=== PATIENT | male | born 1955 | race Caucasian/White ===

== ENCOUNTER 2017-04-02 09:00 | Emergency (ER) | payer OTHER ==
[2017-04-02] MEDS ORDERED: cefTRIAXone(*) 1 GM in NS 0.9% 50 ML* 50 ML IVPB ONE (09:27)
[2017-04-02] MEDS ORDERED: Lidocaine 1%* 5 ML VIAL ONE (10:27)
[2017-04-02] MEDS ORDERED: cefTRIAXone VIAL(*) 1,000 MG VIAL ONE (10:27)
[2017-04-02] MEDS ORDERED: cefTRIAXone VIAL(*) 1,000 MG in NS 0.9% 50 ML* 50 ML IVPB ONE (10:30)
[2017-04-02] MEDS ORDERED: cefTRIAXone VIAL(*) 1,000 MG VIAL IM ONE (10:32)
[2017-04-02 11:10] VITALS: BP 136/79
--- NOTE | 2017-04-02 17:41 | ED ---
Su Hooper Thomas, scribed for Zac Wong MD on 04/02/17 at 0933 . Skin Complaint - HPI Summary HPI Summary: Pt is a 61 y/o male presenting to the ED with an abscess and rash on the R lateral site of the thigh that was first observed two weeks ago. Since onset, the rash has become progressively larger and it began to drain this morning. The pt reports mild soreness in the area, ranked 2/10. Sx aggravated and alleviated by nothing. The pt notes that for five years there had been a spot in the location of the abscess. Denies fevers, chills. No recent abx use. Denies Hx of MRSA. NKDA - History of Current Complaint Chief Complaint: EDRashSkinAbscess Stated Complaint: INFECTION ON RT LEG Hx Obtained From: Patient Onset/Duration: Started Days Ago - two weeks, Still Present Timing: Constant Onset Severity: Mild Current Severity: Mild Pain Intensity: 2 Pain Scale Used: 0-10 Numeric Skin Location: Other: - R lateral site of the thigh Character: Raised - Abscess, Painful Aggravating Symptom(s): Nothing Alleviating Symptom(s): Nothing Associated Signs & Symptoms: Negative - Allergy/Home Medications Allergies/Adverse Reactions: Allergies Allergy/AdvReac Type Severity Reaction Status Date / Time No Known Allergies Allergy Verified 01/03/15 12:13 PMH/Surg Hx/FS Hx/Imm Hx Respiratory History: Reports: Hx Chronic Obstructive Pulmonary Disease (COPD) - duoneb, advair, singulair, prednisone Denies: Other Respiratory Problems/Disorders Musculoskeletal History: Denies: Hx Rheumatoid Arthritis, Hx Osteoporosis Sensory History: Reports: Hx Contacts or Glasses Opthamlomology History: Reports: Hx Contacts or Glasses - Surgical History Surgery Procedure, Year, and Place: hip surgery 1966 - Immunization History Date of Tetanus Vaccine: Unknown Infectious Disease History: No Infectious Disease History: Denies: Traveled Outside the [place] in Last 30 Days - Family History Known Family History: Positive: Other - COPD (brother as a result) - Social History Alcohol Use: Weekly Substance Use Type: Reports: None Smoking Status (MU): Former Smoker Type: Cigarettes Review of Systems Negative: Fever, Chills Positive: Other - Abscess on the R lateral site of the thigh All Other Systems Reviewed And Are Negative: Yes Physical Exam - Summary Physical Exam Summary: GENERAL: Patient is a well-developed, obese, and nourished male is lying comfortable in the stretcher. Patient is not in any acute respiratory distress. HEAD AND FACE: No signs of trauma. No ecchymosis, hematomas or skull depressions. No sinus tenderness. EYES: PERRLA, EOMI x 2, No injected conjunctiva, no nystagmus. EARS: Hearing grossly intact. Ear canals and tympanic membranes are within normal limits. MOUTH: Oropharynx within normal limits. NECK: Supple, trachea is midline, no adenopathy, no JVD, no carotid bruit, no c- spine tenderness, neck with full ROM. CHEST: Symmetric, no tenderness at palpation LUNGS: Clear to auscultation bilaterally. No wheezing or crackles. CVS: Regular rate and rhythm, S1 and S2 present, no murmurs or gallops appreciated. ABDOMEN: Soft, non-tender. No signs of distention. No rebound no guarding, and no masses palpated. Bowel sounds are normal. EXTREMITIES: FROM in all major joints, no edema, no cyanosis or clubbing. NEURO: Alert and oriented x 3. No acute neurological deficits. Speech is normal and follows commands. SKIN: Abscess of cellulitis in the R lateral site of the thigh. Triage Information Reviewed: Yes Vital Signs On Initial Exam: Initial Vitals Temp Pulse Resp BP Pulse Ox 97.7 F 88 16 138/65 95 04/02/17 09:02 04/02/17 09:02 04/02/17 09:02 04/02/17 09:02 04/02/17 09:02 Vital Signs Reviewed: Yes Procedures - Procedure Summary Procedure Summary: I&D: Prepped with sterile techniques. Placed lidocaine without epi. Used an 11 blade and opened. Exposed copious cell sanguineous discharge. Put in packing of gauze. No complications. - Incision and Drainage Site: R lateral site of thigh Anesthesia: Lidocaine - without epi Instrument(s): Scalpel - 11 blade Packing: Gauze Diagnostics - Vital Signs Vital Signs Temp Pulse Resp BP Pulse Ox 04/02/17 09:05 98.1 F 86 16 138/65 95 04/02/17 09:02 97.7 F 88 16 138/65 95 - Laboratory Lab Statement: Any lab studies that have been ordered have been reviewed, and results considered in the medical decision making process. Course/Dx - Course Course Of Treatment: Pt is a 61 y/o male presenting to the ED with an abscess and rash on the R lateral site of the thigh that was first observed two weeks ago. Since onset, the rash has become progressively larger and it began to drain this morning. The pt reports mild soreness in the area, ranked 2/10. Sx aggravated and alleviated by nothing. The pt notes that for five years there had been a spot in the location of the abscess. Denies fevers, chills. No recent abx use. Denies Hx of MRSA. NKDA. Patient has an abscess of cellulitis which was I&D'ed. Patient was given 1 dose of Rocephin. Cultures were sent to the lab and the patient was discharged with Bactrim. He was instructed to follow up with his PCP for culture results and a check in two days. If he does not have an appointment with PCP, then he can return to the ED for further assessment. Patient is AxOx3 and hemodynamically stable. I discussed all the findings and test results with the patient. Patient was instructed to return to the emergency room immediately if any of the symptoms return or worsens. Plan of care was discussed with the patient and understands and agrees. All questions were answered at patient satisfaction. There were no further complaints or concerns. Lung exam before discharge: CTA B/L. Good air exchange. No wheezing or crackles heard. CVS: S1 and S2 present. No murmurs appreciated. Patient is alert and oriented x 3. Patient is hemodynamically stable. Patient will be discharged home with follow up PCP in the next 2-3 days - Differential Diagnoses - Skin Complaint Differential Diagnoses: Abscess, Cellulitis - Diagnoses Provider Diagnoses: Abscess or cellulitis of thigh Discharge - Discharge Plan Condition: Stable Disposition: HOME Prescriptions: Sulfamethox/Trimethoprim DS* [Bactrim DS 800/160 TAB*] 1 tab PO BID #20 tab Patient Education Materials: Abscess (ED) Referrals: [facility] [Outside] - 2 Days (Follow up in two days with your primary care provider. If you do not have an appointment, you can return to the ED for further assessment. ) The documentation as recorded by the Su beasley Thomas accurately reflects the service I personally performed and the decisions made by me, Zac Wong MD.
== END 2017-04-02 11:10 | disposition home or self-care (01) ==
LOC: ED 09:00
DX: L02.415 Cutaneous abscess of right lower limb (principal); J44.9 Chronic obstructive pulmonary disease, unspecified; Z87.891 Personal history of nicotine dependence
CPT/HCPCS: 10060; 87070; 87077; 87205; 87640; 87641; 96372; 99284; J0696

== ENCOUNTER 2017-10-10 01:53 | Emergency (ER) | payer OTHER ==
[2017-10-10] MEDS ORDERED: oxyCODONE/Acetamin 5/325 MG* TAB PO ONE (04:04)
[2017-10-10 04:45] VITALS: BP 154/76
--- NOTE | 2017-10-10 05:01 | ED ---
Claudia Hooper Emily, scribed for Ag Hauel on 10/10/17 at 0210 . Lower Extremity - HPI Summary HPI Summary: This patient is a 62 year old M presenting to [facility] with a chief complaint of left-sided hip pain that began earlier today. Pt reports he fell on his hip at 1999 last night. The patient rates the pain 8/10 in severity. Symptoms aggravated by nothing. Symptoms alleviated by nothing. Patient reports difficulty walking. Pt has pins in his L hip. - History of Current Complaint Chief Complaint: EDHipPelvisInjury Stated Complaint: LT HIP INJURY Time Seen by Provider: 10/10/17 02:01 Hx Obtained From: Patient Mechanism Of Injury: Fall From A Standing Position Onset of Pain: Immediate Onset/Duration: Hours Severity Initially: Severe Severity Currently: Severe Pain Intensity: 8 Pain Scale Used: 0-10 Numeric Timing: Constant, Lasting Hours Location: Is Discrete @ - Left hip Associated Signs And Symptoms: Positive: Other - Positive difficulty walking Aggravating Factor(s): Nothing Alleviating Factor(s): Nothing - Allergies/Home Medications Allergies/Adverse Reactions: Allergies Allergy/AdvReac Type Severity Reaction Status Date / Time No Known Allergies Allergy Verified 01/03/15 12:13 PMH/Surg Hx/FS Hx/Imm Hx Previously Healthy: No Respiratory History: Reports: Hx Chronic Obstructive Pulmonary Disease (COPD) - duoneb, advair, singulair, prednisone Denies: Other Respiratory Problems/Disorders Musculoskeletal History: Denies: Hx Rheumatoid Arthritis, Hx Osteoporosis Sensory History: Reports: Hx Contacts or Glasses Opthamlomology History: Reports: Hx Contacts or Glasses - Surgical History Surgery Procedure, Year, and Place: hip surgery 1966 - Immunization History Date of Tetanus Vaccine: Unknown Infectious Disease History: No Infectious Disease History: Denies: Traveled Outside the [place] in Last 30 Days - Family History Known Family History: Positive: Other - COPD (brother as a result) - Social History Occupation: Retired Lives: With Family Alcohol Use: Weekly Substance Use Type: Reports: None Smoking Status (MU): Former Smoker Type: Cigarettes Review of Systems Negative: Fever Positive: Other - Positive L hip pain and difficulty walking All Other Systems Reviewed And Are Negative: Yes Physical Exam Triage Information Reviewed: Yes Vital Signs On Initial Exam: Initial Vitals Temp Pulse Resp BP Pulse Ox 97.9 F 79 16 162/73 96 10/10/17 01:55 10/10/17 01:55 10/10/17 01:55 10/10/17 01:55 10/10/17 01:55 Vital Signs Reviewed: Yes Appearance: Positive: Well-Appearing, No Pain Distress Skin: Positive: Warm, Skin Color Reflects Adequate Perfusion, Dry Head/Face: Positive: Normal Head/Face Inspection Eyes: Positive: EOMI, CHRISTIAN Neck: Positive: Supple, Nontender Respiratory/Lung Sounds: Positive: Clear to Auscultation, Breath Sounds Present Cardiovascular: Positive: RRR, Pulses are Symmetrical in both Upper and Lower Extremities Abdomen Description: Positive: Nontender, Soft Bowel Sounds: Positive: Present Musculoskeletal: Positive: Other - Tenderness over the L hip. Restricted ROM of the hip. No neurovascular deficits. Neurological: Positive: Normal, Sensory/Motor Intact, Alert, Oriented to Person Place, Time Psychiatric: Positive: Affect/Mood Appropriate Diagnostics - Vital Signs Vital Signs Temp Pulse Resp BP Pulse Ox 10/10/17 01:55 97.9 F 79 16 162/73 96 - Laboratory Lab Statement: Any lab studies that have been ordered have been reviewed, and results considered in the medical decision making process. - Radiology Hip/Pelvis Radiology Interpretation Completed By: ED Physician - Hip/pelvis XR reveals questionable L hip fracture. - CT Pelvis CT Interpretation Completed By: Radiologist - Pelvis CT reveals, per radiologist , no acute fracture. Fixation left femoral neck. Osteoarthritis left greater than right hips. Diverticulosis colon. Small periumbilical hernia containing fat. ED physician has reviewed this radiology report. Re-Evaluation - Re-Evaluation First Eval Re-Evaluation Time: 04:05 Change: Improved Comment: Pt is able to ambulate Lower Extremity Course/Dx - Course Assessment/Plan: This patient is a 62 year old M presenting to [facility] with a chief complaint of left-sided hip pain that began earlier today. Pt reports he fell on his hip at 1999 last night. Pt has pins in his L hip. Physical Exam Findings. Tenderness over the L hip. Restricted ROM of the hip. No neurovascular deficits. Hip/pelvis XR reveals questionable L hip fracture. Pelvis CT reveals, per radiologist, no acute fracture. Fixation left femoral neck. Osteoarthritis left greater than right hips. Diverticulosis colon. Small periumbilical hernia containing fat. In the ED course the patient was given Percocet. Pt is able ambulate. He wants to follow up with Dr. Madrigal in the morning for follow up as an outpatient. Patient will be discharged with follow up from Dr. Madrigal. The patient is agreeable with this plan. - Diagnoses Differential Diagnosis/HQI/PQRI: Positive: Arthritis, Bursitis, Fracture (Closed ), Sprain, Strain Provider Diagnoses: Left hip pain Discharge - Discharge Plan Condition: Stable Disposition: HOME Prescriptions: oxyCODONE/Acetamin 5/325 MG* [Percocet 5/325 TAB*] 1 tab PO Q8H PRN #15 tab MDD 3 PRN Reason: Pain Patient Education Materials: Oxycodone/Acetaminophen (By mouth), Hip Pain (ED) Referrals: Zina Sharma MD [Primary Care Provider] - Abigail Madrigal MD [Medical Doctor] - 1 Day Additional Instructions: RETURN TO THE EMERGENCY DEPARTMENT FOR NEW OR WORSENING SYMPTOMS The documentation as recorded by the Claudia beasley Emily accurately reflects the service I personally performed and the decisions made by , Uri Ha.
--- NOTE | 2017-10-10 08:07 | RAD ---
HISTORY: Fall, tenderness left hip COMPARISONS: February 07, 2015 VIEWS: 4, Frontal view of the pelvis with frontal and frog-leg views of the left hip FINDINGS: BONE DENSITY: Normal. BONES: The patient is status post internal fixation of the left femur. There is no hardware failure or osteolysis. The appearance is similar to February 07, 2015. JOINTS: There is advanced osteoarthritis of the left hip with moderate osteoarthritis of the right hip ALIGNMENT: There is no dislocation. SOFT TISSUES: Unremarkable. OTHER FINDINGS: None. IMPRESSION: 1. STATUS POST INTERNAL FIXATION OF THE LEFT FEMUR. 2. OSTEOARTHRITIS. 3. NO ACUTE OSSEOUS INJURY. IF SYMPTOMS PERSIST, RECOMMEND REPEAT IMAGING
--- NOTE | 2017-10-10 08:15 | RAD ---
CLINICAL HISTORY: Left hip pain after a slip and fall injury. Relevant surgical history includes left hip "pinned" at the age of 12 COMPARISON: Left hip radiograph dated October 10, [address] abdomen pelvis May 15, 2016 TECHNIQUE: Axial CT images of the pelvis were obtained without intravenous contrast. Reformats in the sagittal and coronal planes were created and reviewed. FINDINGS: The visualized segments of small and large bowel are not distended. The gas-filled appendix Is grossly normal appearance without pathologic dilatation. There is no gross retroperitoneal or mesenteric lymphadenopathy in the visualized portions of the lower abdomen and pelvis. The mildly calcified lower abdominal aorta is normal in course and diameter. The arterial and venous structures of the pelvis and upper thighs are normal in size and morphology. Similar the prior CT examination, there are 3 medullary pin spanning the left femoral neck and head. Degenerative changes include marginal osteophyte formation and service irregularity of the articulating services of the left hip. There is no acute fracture visualized. The visualized musculature of the pelvis and upper thighs is normal in appearance. No large hematomas identified. IMPRESSION: Degenerative and postoperative findings of the left hip as described above without acute fracture or dislocation.
== END 2017-10-10 04:43 | disposition home or self-care (01) ==
LOC: ED 01:53
DX: M25.552 Pain in left hip (principal); W19.XXXA Unspecified fall, initial encounter; Y92.9 Unspecified place or not applicable; J44.9 Chronic obstructive pulmonary disease, unspecified
CPT/HCPCS: 72192; 99283; A9270-GY

== ENCOUNTER 2018-02-15 12:37 | Emergency (ER) | payer OTHER ==
[2018-02-15 12:47] VITALS: BP 164/72
== END 2018-02-15 15:37 | disposition left against medical advice (07) ==
LOC: ED 12:37
DX: R09.89 Other specified symptoms and signs involving the circulatory and respiratory systems (principal); Z53.21 Procedure and treatment not carried out due to patient leaving prior to being seen by health care provider

== ENCOUNTER 2018-02-18 08:18 | Emergency (ER) | payer OTHER ==
[2018-02-18 08:30] VITALS: BP 144/81
[2018-02-18] MEDS ORDERED: Ipratropium 0.5MG/2.5ML NEB* 0.5 MG/2.5 ML NEB.SOLN INH ONE (08:42)
[2018-02-18] MEDS ORDERED: Albuterol 2.5 MG/3 ML NEB.SOL* (0.083%) INH ONE (08:42)
--- NOTE | 2018-02-18 10:07 | UC ---
Respiratory Complaint HPI - HPI Summary HPI Summary: 1 WEEK OF CHEST CONGESTION, COUGH AND WHEEZE. HAS SHORTNESS OF BREATH AT BASELINE DUE TO COPD BUT IT HAS GOTTEN WORSE. NO FEVER, ST N/V. FOLLOWS WITH DR. DE LOS SANTOS - PULMONOLOGY. - History of Current Complaint Chief Complaint: UCRespiratory Stated Complaint: CONGESTED Time Seen by Provider: 02/18/18 08:36 Hx Obtained From: Patient Onset/Duration: Gradual Onset, Lasting Days, Still Present Timing: Constant Severity Initially: Moderate Severity Currently: Moderate Pain Intensity: 0 Pain Scale Used: 0-10 Numeric Character: Cough: Productive Aggravating Factors: Exertion, Deep Breaths, Recumbent Position Alleviating Factors: Bronchodilator Associated Signs And Symptoms: Positive: Dyspnea, Wheezing. Negative: Fever, Pleuritic Chest Pain - Allergies/Home Medications Allergies/Adverse Reactions: Allergies Allergy/AdvReac Type Severity Reaction Status Date / Time No Known Allergies Allergy Verified 02/18/18 08:30 Home Medications: Home Medications Aclidinium Seymour [Tudorza Pressair] 400 mcg IN 02/18/18 [History] Montelukast Sodium TAB* [Singulair 10 MG TAB*] 10 mg PO DAILY 02/18/18 [History Confirmed 02/18/18] Roflumilast [Daliresp] 250 mcg PO 02/18/18 [History] predniSONE TAB* [Deltasone TAB*] 10 mg PO DAILY 02/18/18 [History Confirmed 11/07] PMH/Surg Hx/FS Hx/Imm Hx Respiratory History: COPD - Surgical History Surgical History: Yes Surgery Procedure, Year, and Place: hip surgery 1966 - Family History Known Family History: Positive: Other - COPD (brother as a result) - Social History Alcohol Use: Rare Substance Use Type: None Smoking Status (MU): Former Smoker Type: Cigarettes When Did the Patient Quit Smoking/Using Tobacco: 2010 Household Exposure Type: Cigarettes - Immunization History Most Recent Influenza Vaccination: none Most Recent Tetanus Shot: unsure Most Recent Pneumonia Vaccination: none Review of Systems Constitutional: Fatigue ENT: Negative Respiratory: Shortness Of Breath, Cough, Other - WHEEZE Cardiovascular: Negative Gastrointestinal: Negative All Other Systems Reviewed And Are Negative: Yes Physical Exam Triage Information Reviewed: Yes Appearance: Well-Appearing, No Pain Distress, Well-Nourished Vital Signs: Initial Vital Signs Temp 97.5 F 02/18/18 08:27 Pulse 79 02/18/18 08:27 Resp 18 02/18/18 08:27 BP 144/81 02/18/18 08:27 Pulse Ox 95 02/18/18 08:27 Vital Signs Reviewed: Yes Eyes: Positive: Conjunctiva Clear ENT: Positive: Hearing grossly normal, Pharynx normal, TMs normal Neck: Positive: Supple, Nontender, No Lymphadenopathy Respiratory: Positive: No respiratory distress, No accessory muscle use, Decreased breath sounds, Crackles - BASES, Wheezing - DIFFUSELY. Negative: Stridor Abdominal Exam: Normal Abdomen Description: Positive: Soft Musculoskeletal: Positive: No Edema Neurological: Positive: Alert Psychological: Positive: Age Appropriate Behavior Skin: Negative: rashes UC Diagnostic Evaluation - Laboratory O2 Sat by Pulse Oximetry: 95 Re-Evaluation - Re-Evaluation First Eval Re-Evaluation Time: 09:45 - WHEEZE STILL PRESENT BUT IMPROVED AFTER DUONEB. PT FEELS A BIT BETTER Change: Improved Respiratory Course/Dx - Differential Dx/Diagnosis Provider Diagnoses: COPD EXACERBATION Discharge - Sign-Out/Discharge Documenting (check all that apply): Discharge/Admit/Transfer - Discharge Plan Condition: Stable Disposition: HOME Prescriptions: Doxycycline Monohydrate [Doxycycline Monohydrate] 1 cap PO BID #20 cap predniSONE TAB* [Deltasone TAB*] 60 mg PO DAILY #15 tab Patient Education Materials: COPD (Chronic Obstructive Pulmonary Disease) (ED) Referrals: Zina De Los Santos MD [Primary Care Provider] - 2 Weeks Additional Instructions: GIVEN YOUR CHRONIC LUNG CONDITION WILL COVER FOR INFECTION WITH DOXY TWICE DAILY X 10 DAYS. WILL ALSO TREAT WITH A BURST OF PREDNISONE. 60MG DAILY X 3 DAYS THEN 40MG DAILY X 2 DAYS THEN 20MG DAILY X 2 DAYS. THEN RESUME YOUR NORMAL 10MG DAILY. CONTINUE YOUR INHALERS PRESCRIBED. FOLLOW-UP WITH DR. DE LOS SANTOS. GO TO THE ER WITHOUT FAIL IF YOU ARE NOT IMPROVING WITH THE ABOVE TREATMENT. - Billing Disposition and Condition Condition: STABLE Disposition: HOME
== END 2018-02-18 10:07 | disposition home or self-care (01) ==
LOC: UCEAST 08:18
DX: J44.1 Chronic obstructive pulmonary disease with (acute) exacerbation (principal); Z87.891 Personal history of nicotine dependence
CPT/HCPCS: 99212; G0463

== ENCOUNTER 2020-02-07 12:07 | Emergency (ER) | payer MEDICARE, MEDICAID, OTHER ==
[2020-02-07] MEDS ORDERED: Albuterol/Ipratropium NEB.SOL* (2.5/0.5 MG) 3 ML NEB.SOLN ONE (12:15)
[2020-02-07] MEDS ORDERED: Albuterol HFA INHALER* 8 gm MDI INH ONE (12:16)
--- NOTE | 2020-02-07 12:26 | ED ---
Shortness of Breath - HPI Summary HPI Summary: The patient is a 64-year-old male presenting to [facility] from [facility] with a chief complaint of shortness of breath this morning. He reports a history of COPD with chronic shortness of breath, but he felt more short of breath today than usual. He has O2 at home as needed. He endorses a productive cough. He denies any chest pain, nausea, vomiting, diarrhea, loss of taste or smell. He is unsure if he has had any fevers. He is not in any pain now. He was in contact with a positive COVID19 individual last week without the proper PPE. No other past medical history. Former smoker. Admits to rare alcohol use. No substance use. Medications reviewed. Allergies noted. - History of Current Complaint Time Seen by Provider: 02/07/20 12:11 Hx Obtained From: Patient Onset/Duration: Sudden Onset, Lasting Hours, Still Present Current Severity: Mild Dyspnea At: Rest Aggravating Factors: Nothing Alleviating Factors: Nothing Associated Signs & Symptoms: Cough (Productive) - Allergy/Home Medications Allergies/Adverse Reactions: Allergies Allergy/AdvReac Type Severity Reaction Status Date / Time No Known Allergies Allergy Verified 02/07/20 12:45 Home Medications: Home Medications Albuterol 2.5MG/3ML (0.083%)* [Ventolin 2.5 MG/3 ML NEB.SUNITA*] 2.5 mg INH TID PRN 01/03/15 [History Confirmed 02/07/20] Albuterol Sulfate [Proair Hfa] 2 puff INH Q6HR PRN 01/03/15 [History Confirmed 02/07/20] Fluticasone-Salmeterol 500-50* [Advair Diskus 500-50*] 1 puff INH BID 01/03/15 [ History Confirmed 02/07/20] Omeprazole CAP (NF) [Prilosec CAP* 20 MG] 20 mg PO DAILY 01/03/15 [History Confirmed 02/07/20] Aclidinium [place] [Tudorza Pressair] 400 mcg IN DAILY 02/18/18 [History Confirmed 02/07/20] Roflumilast [Daliresp] 500 mcg PO DAILY 02/18/18 [History Confirmed 02/07/20] predniSONE 20 mg TAB [Deltasone 20 MG TAB*] 10 mg PO DAILY 02/18/18 [History Confirmed 02/07/20] Azithromycin TAB* [Zithromax TAB (Z-HO) 250 mg #6 tabs] 250 mg PO DAILY #4 tab 02/07/20 [Rx] PMH/Surg Hx/FS Hx/Imm Hx Endocrine/Hematology History: Denies: Hx Diabetes Cardiovascular History: Denies: Hx Hypercholesterolemia, Hx Hypertension Respiratory History: Reports: Hx Chronic Obstructive Pulmonary Disease (COPD) - duoneb, advair, singulair, prednisone Denies: Other Respiratory Problems/Disorders Musculoskeletal History: Denies: Hx Rheumatoid Arthritis, Hx Osteoporosis Sensory History: Reports: Hx Contacts or Glasses Opthamlomology History: Reports: Hx Contacts or Glasses - Surgical History Surgical History: Yes Surgery Procedure, Year, and Place: hip surgery 1966 - Immunization History Date of Tetanus Vaccine: Unknown - Family History Known Family History: Positive: Other - COPD (brother as a result) - Social History Alcohol Use: Rare Hx Substance Use: No Substance Use Type: Reports: None Hx Tobacco Use: Yes Smoking Status (MU): Former Smoker Type: Cigarettes Review of Systems Negative: Fever - unsure Negative: Other - loss of taste or smell Negative: Chest Pain Positive: Shortness Of Breath, Cough - productive Negative: Vomiting, Diarrhea, Nausea All Other Systems Reviewed And Are Negative: Yes Physical Exam - Summary Physical Exam Summary: VITAL SIGNS: Reviewed. GENERAL: Patient is a well-developed and nourished male who is lying comfortable in the stretcher. Patient is not in any acute respiratory distress. HEAD AND FACE: No signs of trauma. No ecchymosis, hematomas or skull depressions. No sinus tenderness. EYES: PERRL, EOMI x 2, No injected conjunctiva, no nystagmus. EARS: Hearing grossly intact. Ear canals and tympanic membranes are within normal limits. MOUTH: Oropharynx within normal limits. NECK: Supple, trachea is midline, no adenopathy, no JVD, no carotid bruit, no c- spine tenderness, neck with full ROM. CHEST: Symmetric, no tenderness at palpation. LUNGS: Coarse breath sounds. Wheezing. No crackles. CVS: Regular rate and rhythm, S1 and S2 present, no murmurs or gallops appreciated. ABDOMEN: Soft, non-tender. No signs of distention. No rebound, no guarding, and no masses palpated. Bowel sounds are normal. EXTREMITIES: FROM in all major joints, no edema, no cyanosis or clubbing. NEURO: Alert and oriented x 3. No acute neurological deficits. Speech is normal and follows commands. SKIN: Dry and warm. Triage Information Reviewed: Yes Vital Signs Reviewed: Yes Procedures - Sedation Patient Received Moderate/Deep Sedation with Procedure: No Diagnostics - Laboratory Result Diagrams: 02/07/20 12:15 02/07/20 12:15 Lab Statement: Any lab studies that have been ordered have been reviewed, and results considered in the medical decision making process. - Radiology Chest X-Ray Radiology Interpretation Completed By: Radiologist Summary of Radiographic Findings: Impression: Hypoinflated lungs with bibasilar airspace opacification (atelectasis versus infiltrate). Dr. Wong has reviewed this report. - EKG 1222 Cardiac Rate: NL - 73 BPM EKG Rhythm: Sinus Rhythm Summary of EKG Findings: EKG at 1222 reveals sinus rhythm at 73 BPM. Incomplete RBBB. No ST elevations. Similar to previous. Dr. Wong has reviewed and interpreted this EKG. 1252 Cardiac Rate: NL - 80 BPM EKG Rhythm: Sinus Rhythm EKG Comparison: No Significant Change - Unchanged from 01/04/15 Summary of EKG Findings: EKG at 1252 reveals sinus rhythm at [address] elevations. Similar to previous on 01/04/15. Dr. Wong has reviewed and interpreted this EKG. Re-Evaluation - Re-Evaluation First Eval Re-Evaluation Time: 15:15 Comment: Patient would like to leave A. He was advised to stay in the hospital both by myself and the hospitalist, but he understands and would still like to leave. Course/Dx - Course Assessment/Plan: The patient is a 64-year-old male presenting to [facility] from [facility] with a chief complaint of shortness of breath this morning. He reports a history of COPD with chronic shortness of breath, but he felt more short of breath today than usual. He is not on O2 at home. He endorses a productive cough. He denies any chest pain, nausea, vomiting, diarrhea, loss of taste or smell. He is unsure if he has had any fevers. He is not in any pain now. He was in contact with a positive COVID19 individual last week without the proper PPE. No other past medical history. Former smoker. Admits to rare alcohol use. No substance use. Medications reviewed. Allergies noted. PMH: COPD not in oxygen and still smoking, Alcohol use, GERD. In the ED course the patient was placed in a monitoring tech, IV access was obtained. Patient was given Albuterol MDI. Past medical records reviewed. Blood test w/o a significant abnormality except for WBCs 18.1, glucose 112, troponin 0.03, CRP 105, BNP 206, lymphocytes 0.8, neutrophils 15. Chest x-ray impression: Hyperinflated lungs with bilateral opacification. Atelectasis versus infiltrate. Therefore the patient will be placed on Azithromycin. I discussed my physical exam and findings with Dr. Desouza who accepted the patient for admission. However the patient refused to be admitted to the hospital services. Patient has signed the AGAINST MEDICAL ADVICE form. I extensively discussed with the patient the benefits and risk of leaving AMA. I also discussed the alternatives to leaving AMA, however, the patient still insists to leave the hospital AMA. The patient is clinically sober, free from distracting injury, appears to have intact insight and judgment and reason and in my opinion has the capacity to make decisions. Patient has full capacity and is cognitively intact. The patient presents with SOB, cough, exposure to positive COVID patient , I have explained that I am concerned with those symptoms which may represent COPD exacerbation, Pneumonia, ARDS, and . The patient verbalizes understanding of my concerns. I have also explained the results of the labs even though they are primarily within normal limits. The primary nurse and the charge nurse also strongly recommended that the patient should not leave AMA. Patient understands the risks of leaving AMA, which includes but is not restricted to . Patient signed the AMA form. Patient was also advised to return to ED if he changes his mind or if the symptoms worsen or other symptoms appear. Patient understands and agrees. Again, I discussed all the findings and test results with the patient. Patient was instructed to return to the emergency room immediately if any of the symptoms return or worsen. Plan of care was discussed with the patient, and he understands and agrees. All questions were answered at patient satisfaction. There were no further complaints or concerns. Patient signed AMA, and he was discharged AMA. - Diagnoses Provider Diagnoses: Pneumonia, COPD (chronic obstructive pulmonary disease) - Physician Notifications Discussed Care of Patient With: Peggy Desouza - hospitalist Time Discussed With Above Provider: 13:45 Instructed by Provider To: Other - I discussed the patients case with Dr. Desouza, who accepts the patient for admission. After speaking with the patient, Dr. Desouza states the patient would like to go home. He does have oxygen at home and will increase the amount at night rather than staying in the hospital [ 1450]. - Critical Care Time Critical Care Statement: Critical care time is provided exclusive of any time spent performing procedures. Discharge ED - Sign-Out/Discharge Documenting (check all that apply): Patient Departure - Patient will leave AMA. - Discharge Plan Condition: Stable Disposition: AGAINST MEDICAL ADVICE Prescriptions: Azithromycin TAB* [Zithromax TAB (Z-HO) 250 mg #6 tabs] 250 mg PO DAILY #4 tab Patient Education Materials: COPD (Chronic Obstructive Pulmonary Disease) (DC) , Pneumonia (ED) Forms: COVID-19 Tested & Isolation Referrals: [facility] [Outside] - 3 Days Additional Instructions: Please take medications as prescribed. You were seen in the emergency department for coronavirus rule out. The department of health will contact you within 24 hours. Due to the pandemic, you should stay in your house and self quarantine. See the separate quarantine paper for further instructions. You should wear a mask if you're outside of your personal room. We encourage handwashing as well as limited contact with other people including the elderly and the immunocompromised. If any studies were not completed at the time of discharge, you will be called with the relevant results. Return to the emergency department for severe trouble breathing, worsening or concerning symptoms. - Billing Disposition and Condition Condition: STABLE Disposition: Against Medical Advice - Attestation Statements Document Initiated by Leslieibe: Yes Documenting Scribe: Meredith Smith Provider For Whom Kristina is Documenting (Include Credential): Zac Wong MD Scribe Attestation: Meredith Hooper, scribed for Zac Wong MD on 02/09/20 at 0755. Scribe Documentation Reviewed: Yes Provider Attestation: The documentation as recorded by the Meredith beasley accurately reflects the service I personally performed and the decisions made by me, Zac Wong MD Status of Scribe Document: Viewed
[2020-02-07 13:01] LABS: Hematocrit 44 % (42-52); Hemoglobin 14.9 g/dL (14.0-18.0); Mean Corpuscular HGB Conc 34 g/dL (31-36); Mean Corpuscular Hemoglobin 30 pg (27-31); Mean Corpuscular Volume 87 fL (80-94); Mean Platelet Volume 8.4 fL (7.4-10.4); Platelet Count 253 10^3/uL (150-450); Red Blood Count 5.02 10^6 /uL (4.18-5.48); Red Cell Distribution Width 15 % (10-15); White Blood Count 18.1 10^3/uL (3.5-10.8)
[2020-02-07 13:22] LABS: ABS Basophils 0.1 10^3/ul (0-0.2); ABS Eosinophils 0.1 10^3/ul (0-0.6); ABS Lymphocytes 0.8 10^3/ul (1.0-4.8); ABS Monocytes 2.1 10^3/ul (0-0.8); Eosinophil % 0.8 %; Lymphocyte % 4.3 %
[2020-02-07 13:24] LABS: ALT 20 U/L (7-52); AST 21 U/L (13-39); Albumin/Globulin Ratio 1.2 (1-3); Alkaline Phosphatase 61 U/L (34-104); Anion Gap 7 mmol/L (2-11); BUN/Creatinine Ratio 18.8 (8-20); Blood Urea Nitrogen 19 mg/dL (6-24); C Reactive Protein 105.59 mg/L (<8.01); CO2 Carbon Dioxide 28 mmol/L (22-32); Calcium 9.7 mg/dL (8.6-10.3); Chloride 101 mmol/L (101-111); Creatine Kinase 153 U/L (10-223); EGFR African American 89.4 (>60); EGFR Non-African American 73.9 (>60); Globulin 3.4 g/dL (2-4); Glucose 112 mg/dL (70-100); Potassium 4.1 mmol/L (3.5-5.0); Sodium 136 mmol/L (135-145); Total Protein 7.4 g/dL (6.4-8.9)
[2020-02-07 13:29] LABS: CKMB ng/mL 1.9 ng/mL (0.6-6.3)
[2020-02-07 13:32] LABS: Troponin I 0.03 ng/mL (<0.03)
[2020-02-07] MEDS ORDERED: Azithromycin TAB* 250 MG PO ONE (15:10)
[2020-02-07 15:35] VITALS: BP 141/83
--- NOTE | 2020-02-07 16:08 | CONS ---
CC: Dr. Sharma* CONSULTATION REPORT: DATE OF CONSULT: 02/07/20 PRIMARY CARE PROVIDER: None. ERGONOMICS TECHNICIAN: Dr. Sharma. CHIEF COMPLAINT: Shortness of breath. HISTORY OF PRESENT ILLNESS: Mr. Ontiveros is a 64-year-old male who has a known history of COPD, who uses supplemental oxygen at night and is on chronic prednisone 10 mg daily, who presents to the emergency room with complaints of 1 week of progressive shortness of breath. The patient does note that approximately 1 week ago he came in contact with an individual who ultimately was positive for COVID-19. 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 He states over the last 1 week he has had occasional sweats and chills, but never felt like he had a fever ; however, he does not have a thermometer at home. He does admit to cough that is slightly more than normal and there is some sputum. He does feel better since arriving to the emergency room. He lives alone. PAST MEDICAL HISTORY: 1. GERD. 2. COPD. PAST SURGICAL HISTORY: Left hip surgery. MEDICATIONS: 1. Prednisone 10 mg p.o. daily. 2. Daliresp 500 mcg p.o. daily. 3. Advair 500/50 one puff inhaled twice daily. 4. Albuterol 2 puffs inhaled q.6 hours p.r.n. shortness of breath. 5. Albuterol 1 neb inhaled 3 times daily p.r.n. shortness of breath. 6. Tudorza 400 mcg inhaled daily. 7. Omeprazole 20 mg p.o. daily. ALLERGIES: No known drug allergies. FAMILY HISTORY: Mom at the age of 79 of unknown causes. Dad at the age of 70 of cancer. He is unaware of what type. SOCIAL HISTORY: The patient is a former smoker. He quit in 2011. He previously smoked 1 pack per day for 25 years. He drinks alcohol a couple times a week. 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 He is . He has 3 children. His son, Leroy, would be his healthcare proxy. REVIEW OF SYSTEMS: A complete 11-system review of systems is obtained. Pertinent positives and negatives are as per HPI and in addition the patient does state that earlier in the week he had diarrhea. This has now resolved. The rest of the review of systems is negative. PHYSICAL EXAM: Blood pressure 128/75, pulse 81, respirations 19, temp 97, O2 sat 90% on room air. General: The patient is a well-developed, middle-aged male, sitting up in the stretcher, in no acute distress. HEENT: Pupils are equal. Extraocular muscles are intact. Oropharynx is clear and moist. There is no submandibular, cervical, or supraclavicular adenopathy. Cardiac: Normal S1, S2. Regular rate and rhythm. I do not appreciate any murmurs. Pulmonary: Lungs are clear to auscultation bilaterally, though breath sounds are diminished. Abdomen: Bowel sounds are present. Abdomen is soft, nontender, nondistended. Musculoskeletal: There is no cyanosis or clubbing of the digits. There is full active range of motion of all 4 extremities. Skin: There is an erythematous raised rash to the patient's upper back. There is evidence of excoriations within the rash. Neuro: Cranial nerves II through XII are grossly intact. Sensation is intact to light touch throughout. Strength is 5/ 5 and symmetric in both upper and lower extremities bilaterally. Psych: The patient is alert. He is oriented x3. Affect appears appropriate. DIAGNOSTIC STUDIES/LAB DATA: WBC 18.1, hemoglobin 14.9, hematocrit 44, platelets 253. PTT 35.3. Sodium 136, potassium 4.1, chloride 101, CO2 of 28, BUN 19, creatinine 1.01, glucose 112, lactic acid 0.9, calcium 9.7. Bilirubin 0.9, AST 21, ALT 20, alk phos 61. CPK 153, CK-MB 1.9, troponin 0.03, CRP 105.59 , BNP 206. Albumin 4. Chest x-ray reveals hypoinflated lungs, bibasilar airspace opacification. EKG reveals normal sinus rhythm without any acute ST-T wave abnormalities. ASSESSMENT AND PLAN: Mr. Ontiveros is a 64-year-old male who has a history of chronic obstructive pulmonary disease, who presents to the emergency room with complaints of progressive shortness of breath over the last 1 week. 1. Shortness of breath. At this point, it is likely that the patient is suffering from a chronic obstructive pulmonary disease exacerbation. At the time of my evaluation, he was not wheezing; however, the ER provider did note wheezing. The patient did have contact with a known COVID-positive individual. COVID testing has been sent and is now pending. At this point, the patient refuses admission to the hospital despite the fact that if he is COVID-positive there is a high likelihood that he will decompensate. He states that he prefers to go home, use oxygen continuously at home and check his O2 saturations with his home O2 pulse oximeter. The patient again has been instructed about the risks of going home and he still wishes to be discharged from the ER. I have talked to Dr. Wong about this who will likely have the patient sign out against medical advice. He is to continue on his usual home medication regimen. 2. Rash. The patient has a significant rash on his upper back. Hydrocortisone cream is recommended; however, he states that he has a hard time applying this given the location of his rash. 3. Gastroesophageal reflux disease. The patient will continue on omeprazole. TIME SPENT: Forty-five minutes was spent on the consultation of this patient. [id number]/[facility] #: [id number] RAMSEY
== END 2020-02-07 15:31 | disposition left against medical advice (07) ==
LOC: ED 12:07
DX: J18.9 Pneumonia, unspecified organism (principal); J44.9 Chronic obstructive pulmonary disease, unspecified; R05 Cough; K21.9 Gastro-esophageal reflux disease without esophagitis; Z87.891 Personal history of nicotine dependence; Z20.828 Contact with and (suspected) exposure to other viral communicable diseases; Z79.52 Long term (current) use of systemic steroids; Z79.899 Other long term (current) drug therapy
CPT/HCPCS: 36415; 71045; 80053; 82550; 82553; 83605; 83880; 84484; 85025; 85730; 86140; 87040; 87635; 93005; 99284; A9270-GY; J7620

== ENCOUNTER 2020-05-04 08:43 | Observation (INO) ==
[2020-05-04] MEDS ORDERED: NS 0.9% 1000 ml BAG 1,000 ML IV ONE (09:00)
[2020-05-04] MEDS ORDERED: Diltiazem IV push/loading dose 5 MG/ML 5 ML vial (25 mg) IV SLOW PU ONE (09:04)
[2020-05-04 09:11] LABS: ABS Eosinophils 0.1 10^3/ul (0-0.6); ABS Lymphocytes 0.7 10^3/ul (1.0-4.8); ABS Monocytes 1.2 10^3/ul (0-0.8); ABS Neutrophils 12.9 10^3/ul (1.5-7.7); Eosinophil % 0.8 %; Hematocrit 41 % (42-52); Hemoglobin 14.1 g/dL (14.0-18.0); Lymphocyte % 4.7 %; Mean Corpuscular HGB Conc 34 g/dL (31-36); Mean Corpuscular Hemoglobin 29 pg (27-31); Mean Corpuscular Volume 86 fL (80-94); Mean Platelet Volume 8.3 fL (7.4-10.4); Platelet Count 233 10^3/uL (150-450); Red Cell Distribution Width 16 % (10-15)
[2020-05-04 09:25] LABS: Activated Partial Thrombo Time 30.4 seconds (26.0-38.0); INR 1.14 (0.82-1.09)
[2020-05-04 09:30] LABS: ALT 19 U/L (7-52); Albumin 4.2 g/dL (3.2-5.2); Albumin/Globulin Ratio 1.4 (1-3); Alkaline Phosphatase 66 U/L (34-104); BUN/Creatinine Ratio 19.4 (8-20); Blood Urea Nitrogen 21 mg/dL (6-24); CO2 Carbon Dioxide 29 mmol/L (22-32); Calcium 8.8 mg/dL (8.6-10.3); Chloride 106 mmol/L (101-111); EGFR African American 82.8 (>60); EGFR Non-African American 68.4 (>60); Glucose 101 mg/dL (70-100); Sodium 140 mmol/L (135-145); Total Protein 7.2 g/dL (6.4-8.9)
[2020-05-04 09:41] LABS: Troponin I 0.03 ng/mL (<0.03)
[2020-05-04 09:55] LABS: TSH Ultra Thyroid Stim Horm 1.28 mcIU/mL (0.34-5.60)
[2020-05-04] MEDS ORDERED: Diltiazem IV BAG D5W Premix 125 MG/125 ML BAG IV SCH (10:00)
[2020-05-04 10:44] LABS: AST 22 U/L (13-39); Anion Gap 5 mmol/L (2-11); Potassium 4.5 mmol/L (3.5-5.0)
[2020-05-04] MEDS ORDERED: Perflutren Lipid Microsphere 3 ML VIAL ONE (13:53)
[2020-05-05] MEDS: SPIRIVA Respimat (tiotropium) 2.5 mcg/inh Inhaler INH SCH (07:49)
[2020-05-05 08:43] LABS: Hematocrit 39 % (42-52); Red Blood Count 4.48 10^6 /uL (4.18-5.48); White Blood Count 10.1 10^3/uL (3.5-10.8)
[2020-05-05 08:44] LABS: ABS Basophils 0.1 10^3/ul (0-0.2); ABS Eosinophils 0.2 10^3/ul (0-0.6); ABS Lymphocytes 1.2 10^3/ul (1.0-4.8); ABS Monocytes 1.2 10^3/ul (0-0.8); ABS Neutrophils 7.5 10^3/ul (1.5-7.7); Eosinophil % 1.7 %; Lymphocyte % 11.4 %; Mean Corpuscular HGB Conc 34 g/dL (31-36); Mean Corpuscular Hemoglobin 29 pg (27-31); Mean Corpuscular Volume 87 fL (80-94); Mean Platelet Volume 8.6 fL (7.4-10.4); Platelet Count 182 10^3/uL (150-450); Red Cell Distribution Width 15 % (10-15)
[2020-05-05 09:42] LABS: BUN/Creatinine Ratio 18.8 (8-20); Calcium 8.4 mg/dL (8.6-10.3); EGFR African American 109.1 (>60); EGFR Non-African American 90.2 (>60)
[2020-05-05 09:43] LABS: Albumin 3.7 g/dL (3.2-5.2); Albumin/Globulin Ratio 1.5 (1-3); Globulin 2.5 g/dL (2-4); Total Protein 6.2 g/dL (6.4-8.9)
[2020-05-05 09:44] LABS: Total Bilirubin 0.6 mg/dL (0.2-1.0)
[2020-05-05 09:51] LABS: Magnesium 1.9 mg/dL (1.9-2.7)
[2020-05-05] MEDS ORDERED: Magnesium Sulfate IV 1GM/100ML 1 GM/100 ML BAG IV ONE (09:54)
[2020-05-05] MEDS ORDERED: Albuterol/Ipratropium NEB.SOL (2.5/0.5 MG) 3 ML NEB.SOLN INH ONE (15:23)
[2020-05-05] MEDS ORDERED: Albuterol/Ipratropium NEB.SOL (2.5/0.5 MG) 3 ML NEB.SOLN ONE (16:32)
[2020-05-05] MEDS ORDERED: Albuterol HFA INHALER 8 gm MDI INH PRN (17:20)
[2020-05-05] MEDS: Mometasone/Formoter 200/5 MDI INH SCH (23:39)
[2020-05-06 06:09] LABS: ABS Eosinophils 0.1 10^3/ul (0-0.6); ABS Lymphocytes 0.9 10^3/ul (1.0-4.8); ABS Monocytes 1.2 10^3/ul (0-0.8); ABS Neutrophils 7.2 10^3/ul (1.5-7.7); Eosinophil % 1.5 %; Hematocrit 40 % (42-52); Hemoglobin 13.4 g/dL (14.0-18.0); Lymphocyte % 9.8 %; Mean Corpuscular HGB Conc 34 g/dL (31-36); Mean Corpuscular Hemoglobin 29 pg (27-31); Mean Corpuscular Volume 86 fL (80-94); Mean Platelet Volume 8.3 fL (7.4-10.4); Nucleated Red Blood Cells % 0.2; Platelet Count 185 10^3/uL (150-450); Red Blood Count 4.63 10^6 /uL (4.18-5.48); Red Cell Distribution Width 15 % (10-15); White Blood Count 9.5 10^3/uL (3.5-10.8)
[2020-05-06 06:29] LABS: Albumin 3.8 g/dL (3.2-5.2); Albumin/Globulin Ratio 1.5 (1-3); BUN/Creatinine Ratio 15.6 (8-20); Calcium 9.3 mg/dL (8.6-10.3); EGFR African American 94.8 (>60); EGFR Non-African American 78.4 (>60); Globulin 2.6 g/dL (2-4); Magnesium 2.1 mg/dL (1.9-2.7); Potassium 3.8 mmol/L (3.5-5.0); Total Bilirubin 0.7 mg/dL (0.2-1.0); Total Protein 6.4 g/dL (6.4-8.9)
[2020-05-06] MEDS: SPIRIVA Respimat (tiotropium) 2.5 mcg/inh Inhaler INH SCH (07:52)
[2020-05-06] MEDS: Mometasone/Formoter 200/5 MDI INH SCH ×2 (07:52→19:41)
[2020-05-06] MEDS ORDERED: Digoxin IV 0.5 MG/2 ML AMP (0.25 MG/ML) IV SLOW PU ONE (15:28)
[2020-05-07 05:22] LABS: ABS Basophils 0.1 10^3/ul (0-0.2); ABS Eosinophils 0.2 10^3/ul (0-0.6); ABS Lymphocytes 1.1 10^3/ul (1.0-4.8); ABS Monocytes 1.1 10^3/ul (0-0.8); ABS Neutrophils 7.2 10^3/ul (1.5-7.7); Eosinophil % 1.6 %; Hematocrit 39 % (42-52); Hemoglobin 13.7 g/dL (14.0-18.0); Lymphocyte % 11.5 %; Mean Corpuscular HGB Conc 35 g/dL (31-36); Mean Corpuscular Hemoglobin 30 pg (27-31); Mean Corpuscular Volume 85 fL (80-94); Mean Platelet Volume 8.3 fL (7.4-10.4); Platelet Count 203 10^3/uL (150-450); Red Blood Count 4.64 10^6 /uL (4.18-5.48); Red Cell Distribution Width 15 % (10-15); White Blood Count 9.6 10^3/uL (3.5-10.8)
[2020-05-07 05:39] LABS: Albumin 3.8 g/dL (3.2-5.2); Albumin/Globulin Ratio 1.4 (1-3); BUN/Creatinine Ratio 17.9 (8-20); EGFR Non-African American 79.3 (>60); Globulin 2.7 g/dL (2-4); Potassium 3.8 mmol/L (3.5-5.0); Total Bilirubin 0.7 mg/dL (0.2-1.0); Total Protein 6.5 g/dL (6.4-8.9)
[2020-05-07] MEDS: Mometasone/Formoter 200/5 MDI INH SCH (08:44)
[2020-05-07] MEDS: SPIRIVA Respimat (tiotropium) 2.5 mcg/inh Inhaler INH SCH (08:45)
[2020-05-07 11:39] VITALS: BP 122/66
== END 2020-05-07 13:00 | disposition home or self-care (01) | DRG 309 ==
LOC: ED 08:43 → INTOOBSV 11:18 → ICU 11:18 → MEDTELE 05-05 17:24
PROVIDERS: ADMIT Internal Medicine; ATTEND Internal Medicine

== ENCOUNTER 2021-10-13 15:25 | Inpatient (IN) ==
[2021-10-13] MEDS ORDERED: Lactated Ringers 1000 ml BAG 1,000 ML IV ONE (15:35)
[2021-10-13] MEDS ORDERED: Dexamethasone IV 4 MG/ML VIAL 1 ml VIAL IV SLOW PU ONE (15:35)
[2021-10-13] MEDS ORDERED: Cefepime 1 GM in Dextrose 1 GM/50 ML BAG IV ONE (15:35)
[2021-10-13 15:51] LABS: ABS Basophils 0.1 10^3/ul (0-0.2); ABS Eosinophils 0.4 10^3/ul (0-0.6); ABS Lymphocytes 1.1 10^3/ul (1.0-4.8); ABS Monocytes 1.2 10^3/ul (0-0.8); ABS Neutrophils 6.6 10^3/ul (1.5-7.7); Eosinophil % 3.9 %; Hematocrit 35 % (42-52); Hemoglobin 11.4 g/dL (14.0-18.0); Lymphocyte % 11.9 %; Mean Corpuscular HGB Conc 33 g/dL (31-36); Mean Corpuscular Hemoglobin 27 pg (27-31); Mean Corpuscular Volume 82 fL (80-94); Mean Platelet Volume 8.1 fL (7.4-10.4); Nucleated Red Blood Cells % 0.1; Platelet Count 210 10^3/uL (150-450); Red Blood Count 4.22 10^6 /uL (4.18-5.48); Red Cell Distribution Width 16 % (10-15); White Blood Count 9.2 10^3/uL (3.5-10.8)
[2021-10-13 15:53] LABS: PCO2 Arterial 53 mmHg (35-45); PO2 Arterial 61 mmHg (80-100)
[2021-10-13] MEDS ORDERED: Albuterol 2.5mg/3 ml (0.083%) NEB.SOLN INH SCH (16:00)
[2021-10-13 16:10] LABS: ALT 18 U/L (7-52); AST 21 U/L (13-39); Albumin 3.8 g/dL (3.2-5.2); Albumin/Globulin Ratio 1.1 (1-3); Alkaline Phosphatase 51 U/L (35-149); Anion Gap 7 mmol/L (2-11); Blood Urea Nitrogen 11 mg/dL (6-24); C Reactive Protein 65.59 mg/L (<8.01); CO2 Carbon Dioxide 34 mmol/L (22-32); Calcium 9.4 mg/dL (8.6-10.3); Chloride 96 mmol/L (101-111); Globulin 3.6 g/dL (2-4); Glucose 129 mg/dL (70-100); Magnesium 1.8 mg/dL (1.9-2.7); Potassium 3.5 mmol/L (3.5-5.0); Sodium 137 mmol/L (135-145); Total Protein 7.4 g/dL (6.4-8.9)
[2021-10-13] MEDS ORDERED: Amiodarone 150 mg IVPREMIX 150 MG/100 ML BAG IV ONE (16:17)
[2021-10-13] MEDS ORDERED: .Amiodarone 24HR ONLY IV Protocol Order Note IV ONE (16:17)
[2021-10-13] MEDS ORDERED: Magnesium Sulfate 2 gm BAG 2 GM/50 ML BAG IVPB ONE (16:17)
[2021-10-13 16:20] LABS: Troponin I 0.03 ng/mL (<0.03)
[2021-10-13] MEDS ORDERED: Amiodarone 360 MG IVPREMIX 360 MG/200 ML BAG IV SCH (16:27)
[2021-10-13 16:40] LABS: TSH Ultra Thyroid Stim Horm 1.84 mcIU/mL (0.34-5.60)
[2021-10-13] MEDS ORDERED: Iodixanol (CONTRAST) 320 MG/ML 100 ML SDV IV ONE (16:42)
[2021-10-13] MEDS ORDERED: Furosemide 20 mg/2 ml IV VIAL IV SLOW PU ONE (17:44)
[2021-10-13 17:57] LABS: Phosphorus 1.4 mg/dL (2.5-5.0)
[2021-10-13] MEDS ORDERED: Azithromycin 500 mg/250 mL NS IVPB ONE (18:00)
[2021-10-13] MEDS ORDERED: Potassium Chlor 20 meq TAB.ER PO ONE (18:00)
[2021-10-13 19:53] LABS: Urine Appearance Clear; Urine Bilirubin Negative (Negative); Urine Blood Negative (Negative); Urine Color Straw; Urine Glucose Negative (Negative); Urine Ketones Negative (Negative); Urine Nitrite Negative (Negative); Urine Protein Negative (Negative); Urine Specific Gravity 1.014 (1.002-1.030); Urine Urobilinogen Negative (Negative)
[2021-10-13] MEDS: Amiodarone 360 MG IVPREMIX 360 MG/200 ML BAG IV SCH (22:35)
[2021-10-14 05:13] LABS: ABS Lymphocytes 0.3 10^3/ul (1.0-4.8); ABS Monocytes 0.1 10^3/ul (0-0.8); ABS Neutrophils 3.6 10^3/ul (1.5-7.7); Eosinophil % 0.1 %; Hematocrit 33 % (42-52); Hemoglobin 10.8 g/dL (14.0-18.0); Lymphocyte % 7.3 %; Mean Corpuscular HGB Conc 32 g/dL (31-36); Mean Corpuscular Hemoglobin 27 pg (27-31); Mean Corpuscular Volume 84 fL (80-94); Mean Platelet Volume 8.1 fL (7.4-10.4); Nucleated Red Blood Cells % 0.1; Platelet Count 160 10^3/uL (150-450); Red Blood Count 3.98 10^6 /uL (4.18-5.48); Red Cell Distribution Width 15 % (10-15)
[2021-10-14 05:38] LABS: Calcium 9.1 mg/dL (8.6-10.3); Potassium 4.5 mmol/L (3.5-5.0); eGFR CKD-EPI 94.3 (>60)
[2021-10-14] MEDS: CMC:FLUTICAS/UMECLI/VILANT 100-62.5-25 MDI (NF) INH SCH (07:42)
[2021-10-14] MEDS: Amiodarone 360 MG IVPREMIX 360 MG/200 ML BAG IV SCH (10:28)
[2021-10-14 15:12] LABS: Magnesium 2.2 mg/dL (1.9-2.7); Phosphorus 4.2 mg/dL (2.5-5.0)
[2021-10-14] MEDS: Amiodarone 400 mg TAB PO SCH (16:59)
[2021-10-14] MEDS: Permethrin 5% CREAM 1 TUBE TOPICAL ONE ×2 (16:59→20:15)
[2021-10-14] MEDS ORDERED: Azithromycin 500 mg/250 ml NS 500 MG/250 ML BAG IVPB SCH (20:00)
[2021-10-15] MEDS: CMC:FLUTICAS/UMECLI/VILANT 100-62.5-25 MDI (NF) INH SCH (07:27)
[2021-10-15] MEDS: Amiodarone 400 mg TAB PO SCH (08:25)
[2021-10-15] MEDS ORDERED: Metoprolol Tartrate 5 mg VIAL 5 ml VIAL (1 mg/ml) IV ONE (08:49)
[2021-10-15] MEDS ORDERED: Metoprolol Tartrate 5 mg VIAL 5 ml VIAL (1 mg/ml) ONE (08:52)
[2021-10-15] MEDS ORDERED: Perflutren Lipid Microsphere 3 ML VIAL ONE (11:39)
[2021-10-15] MEDS ORDERED: Furosemide 20 mg/2 ml IV VIAL IV SLOW PU ONE (15:23)
[2021-10-15] MEDS ORDERED: Furosemide 20 mg/2 ml IV VIAL ONE (15:26)
[2021-10-16 04:42] LABS: ABS Basophils 0.1 10^3/ul (0-0.2); ABS Eosinophils 0.1 10^3/ul (0-0.6); ABS Lymphocytes 1.2 10^3/ul (1.0-4.8); ABS Monocytes 1.4 10^3/ul (0-0.8); ABS Neutrophils 5.8 10^3/ul (1.5-7.7); Eosinophil % 1.6 %; Hematocrit 37 % (42-52); Hemoglobin 11.8 g/dL (14.0-18.0); Lymphocyte % 13.8 %; Mean Corpuscular HGB Conc 32 g/dL (31-36); Mean Corpuscular Hemoglobin 27 pg (27-31); Mean Corpuscular Volume 83 fL (80-94); Mean Platelet Volume 8.6 fL (7.4-10.4); Platelet Count 224 10^3/uL (150-450); Red Blood Count 4.37 10^6 /uL (4.18-5.48); Red Cell Distribution Width 15 % (10-15); White Blood Count 8.6 10^3/uL (3.5-10.8)
[2021-10-16 05:48] LABS: Calcium 9.6 mg/dL (8.6-10.3); Phosphorus 3.7 mg/dL (2.5-5.0); Potassium 4.2 mmol/L (3.5-5.0); eGFR CKD-EPI 67.2 (>60)
[2021-10-16] MEDS: Metoprolol Tartrate 5 mg VIAL 5 ml VIAL (1 mg/ml) IV PRN (08:35)
[2021-10-16] MEDS ORDERED: Digoxin IV 0.5 MG/2 ML AMP (0.25 MG/ML) IV SLOW PU ONE ×2 (08:51→15:00)
[2021-10-16] MEDS: CMC:FLUTICAS/UMECLI/VILANT 100-62.5-25 MDI (NF) INH SCH (08:56)
[2021-10-17] MEDS: CMC:FLUTICAS/UMECLI/VILANT 100-62.5-25 MDI (NF) INH SCH (07:44)
[2021-10-17] MEDS: Metoprolol Tartrate 5 mg VIAL 5 ml VIAL (1 mg/ml) IV PRN (09:32)
[2021-10-17] MEDS ORDERED: Metoprolol Tartrate 5 mg VIAL 5 ml VIAL (1 mg/ml) IV ONE (21:15)
[2021-10-18 06:57] LABS: eGFR CKD-EPI 86.1 (>60)
[2021-10-18 07:13] LABS: Potassium 5.8 mmol/L (3.5-5.0)
[2021-10-18] MEDS: CMC:FLUTICAS/UMECLI/VILANT 100-62.5-25 MDI (NF) INH SCH (08:31)
[2021-10-18] MEDS ORDERED: Sodium Polystyrene ORAL.SUSP 15 GM/60 ML BTL PO ONE (09:21)
[2021-10-18] MEDS: CMCS: Roflumilast 500 mcg TAB (NF) PO SCH (09:58)
[2021-10-18] MEDS ORDERED: Digoxin IV 0.5 MG/2 ML AMP (0.25 MG/ML) IV SLOW PU ONE (14:05)
[2021-10-18] MEDS: Metoprolol Tartrate 5 mg VIAL 5 ml VIAL (1 mg/ml) IV PRN (14:19)
[2021-10-18 15:32] LABS: Calcium 9.2 mg/dL (8.6-10.3); Potassium 4.6 mmol/L (3.5-5.0); eGFR CKD-EPI 87.2 (>60)
[2021-10-19 06:38] LABS: Calcium 9.4 mg/dL (8.6-10.3); Magnesium 2.1 mg/dL (1.9-2.7)
[2021-10-19] MEDS: CMC:FLUTICAS/UMECLI/VILANT 100-62.5-25 MDI (NF) INH SCH (09:03)
[2021-10-19] MEDS: CMCS: Roflumilast 500 mcg TAB (NF) PO SCH (10:34)
[2021-10-19] MEDS ORDERED: Digoxin IV 0.5 MG/2 ML AMP (0.25 MG/ML) IV SLOW PU ONE ×2 (13:35→17:59)
[2021-10-20] MEDS: CMC:FLUTICAS/UMECLI/VILANT 100-62.5-25 MDI (NF) INH SCH (08:35)
[2021-10-20] MEDS: CMCS: Roflumilast 500 mcg TAB (NF) PO SCH (10:20)
[2021-10-20] MEDS: Metoprolol Tartrate 5 mg VIAL 5 ml VIAL (1 mg/ml) IV PRN (12:13)
[2021-10-21 05:48] LABS: ABS Eosinophils 0.1 10^3/ul (0-0.6); ABS Monocytes 1.1 10^3/ul (0-0.8); ABS Neutrophils 6.1 10^3/ul (1.5-7.7); Eosinophil % 0.9 %; Hematocrit 41 % (42-52); Hemoglobin 13.3 g/dL (14.0-18.0); Lymphocyte % 21.9 %; Mean Corpuscular HGB Conc 33 g/dL (31-36); Mean Corpuscular Hemoglobin 27 pg (27-31); Mean Corpuscular Volume 82 fL (80-94); Mean Platelet Volume 7.9 fL (7.4-10.4); Platelet Count 249 10^3/uL (150-450); Red Blood Count 4.96 10^6 /uL (4.18-5.48); Red Cell Distribution Width 16 % (10-15); White Blood Count 9.4 10^3/uL (3.5-10.8)
[2021-10-21 06:23] LABS: Calcium 9.3 mg/dL (8.6-10.3); Magnesium 2.1 mg/dL (1.9-2.7); Potassium 4.5 mmol/L (3.5-5.0); eGFR CKD-EPI 96.8 (>60)
[2021-10-21] MEDS: CMC:FLUTICAS/UMECLI/VILANT 100-62.5-25 MDI (NF) INH SCH (07:03)
[2021-10-21] MEDS: CMCS: Roflumilast 500 mcg TAB (NF) PO SCH (09:25)
[2021-10-21] MEDS ORDERED: Furosemide 20 mg/2 ml IV VIAL IV ONE (09:42)
[2021-10-21] MEDS: HYDROCORTISONE 0.5% TOPICAL SCH ×2 (19:35→20:48)
[2021-10-22] MEDS: CMC:FLUTICAS/UMECLI/VILANT 100-62.5-25 MDI (NF) INH SCH (07:28)
[2021-10-22 07:53] VITALS: BP 120/70
[2021-10-22] MEDS: CMCS: Roflumilast 500 mcg TAB (NF) PO SCH (10:06)
[2021-10-22] MEDS: HYDROCORTISONE 0.5% TOPICAL SCH (10:08)
== END 2021-10-22 11:55 | disposition home or self-care (01) | DRG 190 ==
LOC: ED 15:25 → EDHOLD 17:42 → SUATTDRO 17:42 → ICU 21:06 → MEDTELE 10-16 14:14
PROVIDERS: ADMIT Internal Medicine Critical Care Medicine; ATTEND Hospitalist